=== PATIENT | female | born 1945 | race Caucasian/White ===

== ENCOUNTER 2017-07-24 11:12 | Emergency (ER) | payer MEDICARE, BC ==
[~2017-07-24] VITALS: Ht 172.7 cm; Wt 75.0 kg
[2017-07-24] MEDS ORDERED: IOHEXOL 350 MG/ML 10 ML VIAL (for RAD DIAG) IVCONTRAST ONE (11:13)
[2017-07-24 11:34] VITALS: BP 154/83; PULSE 73; RESP 16; TEMP 98.1; O2SAT 99
[2017-07-24 11:53] VITALS: BP 163/76; PULSE 75; RESP 18; O2SAT 100
[2017-07-24] MEDS ORDERED: SODIUM CHLOR 0.9% 1000 ML INJ 1,000 ML IV SCH (11:56)
[2017-07-24] MEDS ORDERED: SODIUM CHLORIDE 0.9% FLUSH 10 ML FLUSH IV FLUSH PRN (12:00)
[2017-07-24 12:02] VITALS: RESP 18; O2SAT 99
--- NOTE | 2017-07-24 12:04 | PD ---
HPI Chief Complaint: Abdominal Pain Time Seen by Provider: 11:44 Travel History International Travel<30 days: No Contact w/Intl Traveler<30days: No Traveled to known affect area: No History of Present Illness HPI 72-year-old female presents to the emergency department for evaluation of lower abdominal pain, rectal pain and swelling for 4 days. She also states that she has felt lightheaded and weak. She denies any syncope. No chest pain or shortness of breath. She states the pain is 7/10, pressure-like in the abdomen. No radiation of the pain. She does report history of chronic constipation. She states her last bowel movement was 2 days ago. She states on Monday night, she noticed dark red/brown blood in her underwear. She states she has had intermittent spotting since then. Patient reports history of hyperlipidemia, but is not on any chronic medications. She denies urinary symptoms. She reports history tubal ligation, partial hysterectomy. She denies any other symptoms or complaints. Moderate severity. [facility] Social History Alcohol Use: Yes (Rarely) Tobacco Use: No Substance Use: No Allergies-Medications (Allergen,Severity, Reaction): Coded Allergies: ciprofloxacin (Verified Allergy, Mild, 07/24/17) Review of Systems Except as stated in HPI: all other systems reviewed are Neg Physical Exam Narrative GENERAL: Well-nourished, well-developed elderly for patient, afebrile. SKIN: Focused skin assessment warm/dry. HEAD: Normocephalic. Atraumatic EYES: No scleral icterus. No injection or drainage. NECK: Supple, trachea midline. No JVD or lymphadenopathy. CARDIOVASCULAR: Regular rate and rhythm without murmurs, gallops, or rubs. RESPIRATORY: Breath sounds equal bilaterally. No accessory muscle use. Lung sounds are clear to auscultation peer GASTROINTESTINAL: Abdomen soft, nondistended. She has diffuse tenderness to palpation. MUSCULOSKELETAL: No cyanosis, or edema. BACK: Nontender without obvious deformity. No CVA tenderness. RECTAL EXAM: No masses or tenderness, stool is brown. There is soft stool in the rectal vault, no evidence of rectal impaction. Hemoccult is negative. This exam was done with EMILIA Tavera, at bedside. External hemorrhoids are noted. Data Data Last Documented VS Vital Signs Date Time Temp Pulse Resp B/P (MAP) Pulse Ox O2 Delivery O2 Flow Rate FiO2 07/24/17 15:42 73 18 161/70 (100) 98 Room Air 07/24/17 11:34 98.1 Orders Orders Complete Blood Count With Diff (07/24/17 11:56) Comprehensive Metabolic Panel (07/24/17 11:56) Lipase (07/24/17 11:56) Prothrombin Time / Inr (Pt) (07/24/17 11:56) Act Partial Throm Time (Ptt) (07/24/17 11:56) Urinalysis - C+S If Indicated (07/24/17 11:56) Ct Abd/Pel W Iv Contrast(Rout) (07/24/17 11:56) Iv Access Insert/Monitor (07/24/17 11:56) Ecg Monitoring (07/24/17 11:56) Oximetry (07/24/17 11:56) Sodium Chlor 0.9% 1000 Ml Inj (Ns 1000 M (07/24/17 11:56) Sodium Chloride 0.9% Flush (Ns Flush) (07/24/17 12:00) Electrocardiogram (07/24/17 11:56) Iohexol 350 Inj (Omnipaque 350 Inj) (07/24/17 11:13) Lidocai-Epi 1%-1:100,000 Inj (Xylocaine- (07/24/17 14:45) Wound Culture And Gram Stain (07/24/17 14:45) Clindamycin (Cleocin) (07/24/17 16:15) Labs Laboratory Tests Test 07/24/17 12:06 White Blood Count 10.4 TH/MM3 Red Blood Count 4.29 MIL/MM3 Hemoglobin 13.0 GM/DL Hematocrit 38.7 % Mean Corpuscular Volume 90.2 FL Mean Corpuscular Hemoglobin 30.4 PG Mean Corpuscular Hemoglobin Concent 33.7 % Red Cell Distribution Width 13.6 % Platelet Count 186 TH/MM3 Mean Platelet Volume 8.5 FL Neutrophils (%) (Auto) 70.6 % Lymphocytes (%) (Auto) 19.9 % Monocytes (%) (Auto) 7.9 % Eosinophils (%) (Auto) 0.7 % Basophils (%) (Auto) 0.9 % Neutrophils # (Auto) 7.3 TH/MM3 Lymphocytes # (Auto) 2.1 TH/MM3 Monocytes # (Auto) 0.8 TH/MM3 Eosinophils # (Auto) 0.1 TH/MM3 Basophils # (Auto) 0.1 TH/MM3 CBC Comment DIFF FINAL Differential Comment Prothrombin Time 10.7 SEC Prothromb Time International Ratio 1.1 RATIO Activated Partial Thromboplast Time 22.0 SEC Urine Color LIGHT-YELLOW Urine Turbidity CLEAR Urine pH 7.0 Urine Specific [place] 1.011 Urine Protein NEG mg/dL Urine Glucose (UA) NEG mg/dL Urine Ketones NEG mg/dL Urine Occult Blood NEG Urine Nitrite NEG Urine Bilirubin NEG Urine Urobilinogen LESS THAN 2.0 MG/DL Urine Leukocyte Esterase NEG Urine WBC LESS THAN 1 /hpf Urine Squamous Epithelial Cells <1 /hpf Microscopic Urinalysis Comment CULT NOT INDICATED Blood Urea Nitrogen 19 MG/DL Creatinine 0.85 MG/DL Random Glucose 94 MG/DL Total Protein 6.8 GM/DL Albumin 3.4 GM/DL Calcium Level 9.4 MG/DL Alkaline Phosphatase 59 U/L Aspartate Amino Transf (AST/SGOT) 12 U/L Alanine Aminotransferase (ALT/SGPT) 19 U/L Total Bilirubin 0.2 MG/DL Sodium Level 142 MEQ/L Potassium Level 4.0 MEQ/L Chloride Level 105 MEQ/L Carbon Dioxide Level 29.1 MEQ/L Anion Gap 8 MEQ/L Estimat Glomerular Filtration Rate 65 ML/MIN Lipase 195 U/L [facility] Medical Decision Making Medical Screen Exam Complete: Yes Emergency Medical Condition: Yes Medical Record Reviewed: Yes Interpretation(s) Last Impressions Abdomen/Pelvis CT 07/24/17 1156 Signed Impressions: Service Date/Time: Monday, July 24, 2017 13:00 - CONCLUSION: Abnormal gallbladder appearance. Constipation. Right pelvic cystic mass which may be adnexal in nature or bladder diverticulum. Delayed scanning recommended. Liang Tamayo MD ADDENDUM: The right pelvic finding does not opacify with contrast on delayed scanning. As such, this lesion is felt to be a cystic adnexal mass which, in a postmenopausal patient will need gynecologic followup. Liang Tamayo MD Differential Diagnosis UTI versus pyelonephritis versus hemorrhoids versus constipation versus cholecystitis versus diverticulitis versus anemia versus dehydration versus electrolyte abnormality Narrative Course 72-year-old female presents to the emergency department for evaluation of rectal pain, swelling, abdominal pain for 4 days. EKG, CBC, CMP, lipase, PTT, PT/INR, UA are ordered and pending. CT abdomen/pelvis with IV contrast is ordered and pending. Patient is given normal saline 1 L IV bolus. She declines pain medication at this time. EKG shows sinus rhythm, heart rate 71, no acute ST change. CBC shows no acute abnormality. CMP shows BUN 19, no acute abnormality. Lipase is 195. Coags are unremarkable. UA is negative. CT abdomen/pelvis shows abnormal gallbladder appearance, constipation, right pelvic cystic mass which may be adnexal in nature or bladder diverticulum, delayed scanning recommended. Delayed scanning was completed which shows the lesion is felt to be a cystic adnexal mass which in a postmenopausal patient will need gynecology follow-up. Upon reexamination, patient complains of swelling and pain to the vaginal area. She has possible vaginal abscess. She agrees to incision and drainage. Incision and drainage was completed. Minimal drainage noted. Wound culture was taken. Patient will be started on clindamycin. She is instructed to follow -up with gynecology will be given the information for the fast food services manager lead solutions architect today. Patient will also be given prescription for magnesium citrate for constipation. On exam, she has no right upper quadrant tenderness and no evidence of acute gallbladder disease on exam. Patient is to return for any acute worsening of symptoms. The patient was discharged in stable condition with instructions, including return instructions and follow up instructions. Procedures Procedure Narrative INCISION AND DRAINAGE OF ABSCESS: The area was prepped and was sterilely draped. A subcutaneous wheal of 1% Xylocaine with epinephrine with a total number 3 mL was used to anesthetize the area. The area was properly anesthetized. A number 11 scalpel was used to make a 1 -cm incision across the area of the abscess. Cultures were obtained. The abscess was drained an irrigated with normal saline. Sterile dressing applied. Diagnosis Primary Impression: Labial abscess Additional Impressions: Adnexal cyst Constipation Qualified Codes: K59.00 - Constipation, unspecified Referrals: Corinne Camarena MD call for appointment Patient Instructions: Abscess (ED), Abscess Incision and Drainage (DC), Constipation (ED), General Instructions Additional Instructions: Take antibiotic as directed until gone. Warm, moist compresses. Magnesium citrate for constipation. Drink half a bottle first and if no bowel movement, then drink the rest of the bottle Follow up with fast food services manager. Dr. Camarena is the fast food services manager lead solutions architect today. Follow up with your primary care physician. Return to the emergency department for any acute, worsening of symptoms. Med/Other Pt SpecificInfo: Prescription(s) given Scripts Magnesium Citrate Liq (Magnesium Citrate Liq) 300 Ml Liq 300 ML PO DIRECTED, #1 BOTTLE 0 Refills Prov: Cindy Mcgee 07/24/17 Clindamycin (Clindamycin) 300 Mg Cap 300 MG PO Q6H for Infection for 10 Days, #40 CAP 0 Refills Prov: Cindy Mcgee 07/24/17 Disposition: 01 DISCHARGE HOME Condition: Stable Cindy Mcgee July 24, 2017 12:04
[2017-07-24 12:17] LABS: AUTOMATED NEUTROPHIL # 7.3 TH/MM3 (1.8-7.7); BASOPHIL # 0.1 TH/MM3 (0-0.2); BASOPHIL % 0.9 % (0.0-2.0); EOSINOPHIL # 0.1 TH/MM3 (0-0.4); EOSINOPHIL % 0.7 % (0.0-4.0); HEMATOCRIT 38.7 % (35.0-46.0); LYMPH % 19.9 % (9.0-44.0); LYMPHOCYTE # 2.1 TH/MM3 (1.0-4.8); MEAN CELL VOLUME 90.2 FL (80.0-100.0); MEAN CORPUSCULAR HEMOGLOBIN 30.4 PG (27.0-34.0); MEAN CORPUSCULAR HGB CONC 33.7 % (32.0-36.0); MEAN PLATELET VOLUME 8.5 FL (7.0-11.0); MONO % 7.9 % (0.0-8.0); MONOCYTE # 0.8 TH/MM3 (0-0.9); NEUT % 70.6 % (16.0-70.0); PLATELET COUNT 186 TH/MM3 (150-450); RED BLOOD COUNT 4.29 MIL/MM3 (4.00-5.30); RED CELL DISTRIBUTION WIDTH 13.6 % (11.6-17.2); WHITE BLOOD COUNT 10.4 TH/MM3 (4.0-11.0)
[2017-07-24 12:23] LABS: BILIRUBIN, URINE NEG (NEG); BLOOD, URINE NEG (NEG); GLUCOSE,URINE NEG (NEG); KETONE, URINE NEG (NEG); NITRITE,URINE NEG (NEG); SQUAMOUS EPITHELIAL CELL URINE <1 /hpf (0-5); URINE COLOR LIGHT-YELLOW (YELLW/STRAW); URINE LEUKOCYTE ESTERASE NEG (NEG)
[2017-07-24 12:37] LABS: ALBUMIN 3.4 GM/DL (3.4-5.0); ALT (GPT) 19 U/L (10-53); AST (GOT) 12 U/L (15-37); BICARBONATE 29.1 MEQ/L (21.0-32.0); BLOOD UREA NITROGEN 19 MG/DL (7-18); CALCIUM 9.4 MG/DL (8.5-10.1); CHLORIDE 105 MEQ/L (98-107); CREATININE 0.85 MG/DL (0.50-1.00); GLOMERULAR FILTRATION RATE 65 ML/MIN (>89); GLUCOSE,RANDOM 94 MG/DL (74-106); SODIUM (NA) 142 MEQ/L (136-145)
[2017-07-24 12:40] LABS: ALKALINE PHOSPHATASE 59 U/L (45-117); TOTAL BILIRUBIN ADULT 0.2 MG/DL (0.2-1.0); TOTAL PROTEIN 6.8 GM/DL (6.4-8.2)
[2017-07-24 12:43] LABS: INTERNATIONAL NORMALIZED RATIO 1.1 RATIO; PROTHROMBIN TIME - PATIENT 10.7 SEC (9.8-11.6)
--- NOTE | 2017-07-24 14:28 | RADRPT ---
EXAM DATE/TIME: 07/24/2017 13:00 This report includes an Addendum and supersedes previous reports for this exam. [facility] COMPARISON: No previous studies available for comparison. INDICATIONS : Lower abdomen pain,rectal pain constipation IV CONTRAST: 72 cc Omnipaque 350 (iohexol) IV ORAL CONTRAST: No oral contrast ingested. RADIATION DOSE: 6.76 CTDIvol (mGy) MEDICAL HISTORY : None SURGICAL HISTORY : None. ENCOUNTER: Initial ACUITY: 1 day PAIN SCALE: 8/10 LOCATION: Abdomen TECHNIQUE: Volumetric scanning of the abdomen and pelvis was performed. Using automated exposure control and ad justment of the mA and/or kV according to patient size, radiation dose was kept as low as reasonably achievable to obtain optimal diagnostic quality images. DICOM format image data is available electro nically for review and comparison. FINDINGS: LOWER LUNGS: The visualized lower lungs are clear. LIVER: Small right lobe liver cyst. Abnormal gallbladder appearance with concentric wall calcification and t hickening versus gallbladder contracted around heterogeneous peripherally calcified stone. SPLEEN: Normal size without lesion. PANCREAS: Within normal limits. KIDNEYS: Multiple cortical and parapelvic cysts on the left. No evidence of kidney stones. ADRENAL GLANDS: Within normal limits. VASCULAR: There is no aortic aneurysm. BOWEL/MESENTERY: Small epiphrenic diverticulum. Stool present throughout the colon including abundant formed stool pre sent in the rectum. No abnormal small bowel dilatation. No focal wall thickening or inflammatory [place] ge. ABDOMINAL WALL: Within normal limits. RETROPERITONEUM: There is no lymphadenopathy. BLADDER: No wall thickening or mass. REPRODUCTIVE: Uterus surgically absent. 3.6 cm circumscribed fluid density mass adjacent to the dome of the bladder posteriorly on the right, also contiguous with the vaginal cuff. This may be an adnexal cystic mass or a bladder diverticulum. These densities could be differentiated with delayed scanning of the pelvi s after accumulation of contrast in the urinary bladder INGUINAL: There is no lymphadenopathy or hernia. MUSCULOSKELETAL: Within normal limits for patient age. CONCLUSION: Abnormal gallbladder appearance. Constipation. Right pelvic cystic mass which may be adnexal in nature or bladder diverticulum. Delayed scanning rec ommended. Liang Tamayo MD on July 24, 2017 at 14:18 Board Certified Radiologist. This report was verified electronically. ADDENDUM: The right pelvic finding does not opacify with contrast on delayed scanning. As such, this lesion is felt to be a cystic adnexal mass which, in a postmenopausal patient will need gynecologic followup. Liang Tamayo MD on July 24, 2017 at 15:39 Board Certified Radiologist. This report was verified electronically.
--- NOTE | 2017-07-24 14:44 | PD ---
Data Data Last Documented VS Vital Signs Date Time Temp Pulse Resp B/P (MAP) Pulse Ox O2 Delivery O2 Flow Rate FiO2 07/24/17 12:04 18 07/24/17 12:02 99 Room Air 07/24/17 11:53 75 07/24/17 11:34 98.1 Orders Orders Complete Blood Count With Diff (07/24/17 11:56) Comprehensive Metabolic Panel (07/24/17 11:56) Lipase (07/24/17 11:56) Prothrombin Time / Inr (Pt) (07/24/17 11:56) Act Partial Throm Time (Ptt) (07/24/17 11:56) Urinalysis - C+S If Indicated (07/24/17 11:56) Ct Abd/Pel W Iv Contrast(Rout) (07/24/17 11:56) Iv Access Insert/Monitor (07/24/17 11:56) Ecg Monitoring (07/24/17 11:56) Oximetry (07/24/17 11:56) Sodium Chlor 0.9% 1000 Ml Inj (Ns 1000 M (07/24/17 11:56) Sodium Chloride 0.9% Flush (Ns Flush) (07/24/17 12:00) Electrocardiogram (07/24/17 11:56) Iohexol 350 Inj (Omnipaque 350 Inj) (07/24/17 11:13) Labs Laboratory Tests Test 07/24/17 12:06 White Blood Count 10.4 TH/MM3 Red Blood Count 4.29 MIL/MM3 Hemoglobin 13.0 GM/DL Hematocrit 38.7 % Mean Corpuscular Volume 90.2 FL Mean Corpuscular Hemoglobin 30.4 PG Mean Corpuscular Hemoglobin Concent 33.7 % Red Cell Distribution Width 13.6 % Platelet Count 186 TH/MM3 Mean Platelet Volume 8.5 FL Neutrophils (%) (Auto) 70.6 % Lymphocytes (%) (Auto) 19.9 % Monocytes (%) (Auto) 7.9 % Eosinophils (%) (Auto) 0.7 % Basophils (%) (Auto) 0.9 % Neutrophils # (Auto) 7.3 TH/MM3 Lymphocytes # (Auto) 2.1 TH/MM3 Monocytes # (Auto) 0.8 TH/MM3 Eosinophils # (Auto) 0.1 TH/MM3 Basophils # (Auto) 0.1 TH/MM3 CBC Comment DIFF FINAL Differential Comment Prothrombin Time 10.7 SEC Prothromb Time International Ratio 1.1 RATIO Activated Partial Thromboplast Time 22.0 SEC Urine Color LIGHT-YELLOW Urine Turbidity CLEAR Urine pH 7.0 Urine Specific [place] 1.011 Urine Protein NEG mg/dL Urine Glucose (UA) NEG mg/dL Urine Ketones NEG mg/dL Urine Occult Blood NEG Urine Nitrite NEG Urine Bilirubin NEG Urine Urobilinogen LESS THAN 2.0 MG/DL Urine Leukocyte Esterase NEG Urine WBC LESS THAN 1 /hpf Urine Squamous Epithelial Cells <1 /hpf Microscopic Urinalysis Comment CULT NOT INDICATED Blood Urea Nitrogen 19 MG/DL Creatinine 0.85 MG/DL Random Glucose 94 MG/DL Total Protein 6.8 GM/DL Albumin 3.4 GM/DL Calcium Level 9.4 MG/DL Alkaline Phosphatase 59 U/L Aspartate Amino Transf (AST/SGOT) 12 U/L Alanine Aminotransferase (ALT/SGPT) 19 U/L Total Bilirubin 0.2 MG/DL Sodium Level 142 MEQ/L Potassium Level 4.0 MEQ/L Chloride Level 105 MEQ/L Carbon Dioxide Level 29.1 MEQ/L Anion Gap 8 MEQ/L Estimat Glomerular Filtration Rate 65 ML/MIN Lipase 195 U/L MDM Supervised Visit with [facility]: Yes Narrative Course I, Dr. Enrique, have reviewed the advance practice practitioner's documentation and am in agreement, met with the patient face to face, made the diagnosis, and the medical decision making was done by me. *My assessment and Findings: I evaluated the patient. She has a rather soft benign abdomen. Extensive workup was done. Urine and labs are normal. I discussed the incidental findings with the patient. She will need outpatient follow-up. She does not have any right upper quadrant tenderness and no clinical suspicion of cholecystitis. She belatedly mentioned to me that her clitoris was swollen/sore, so Cindy is evaluating and now Likely will recommend outpatient gynecology follow-up Rectal exam reveals no evidence of impaction or obvious finding in that area. Henrik Enrique MD July 24, 2017 14:44
[2017-07-24] MEDS ORDERED: LIDOCAINE 1%/EPINEPHrine 1:100,000 SOLN 20 ML VIAL INFIL ONE (14:45)
[2017-07-24 15:42] VITALS: BP 161/70; PULSE 73; RESP 18; O2SAT 98
[2017-07-24] MEDS ORDERED: MAGNSOL2 PO (16:09)
[2017-07-24] MEDS ORDERED: CLIN300C5 PO (16:09)
[2017-07-24] MEDS ORDERED: CLINDAMYCIN 150 MG CAP PO ONE (16:15)
--- NOTE | 2017-07-25 16:06 | EKG ---
Date Performed: 07/24/2017 Time Performed: 12:05:36 PTAGE: 72 years EKG: Sinus rhythm NORMAL ECG NO PREVIOUS TRACING DOCTOR: Brad Petersen Interpretating Date/Time 07/25/2017 16:03:09
== END 2017-07-24 16:42 | disposition home or self-care (01) ==
LOC: NEPC 11:12
DX: N76.4 Abscess of vulva (principal); K59.09 Other constipation; K62.89 Other specified diseases of anus and rectum
CPT/HCPCS: 10060; 74177; 80053; 81001; 83690; 85025; 85610; 85730; 87070; 87077; 87186; 93005; 96360; 96361; 99284; J7030; Q9967; 87205